=== PATIENT | female | born 2000 | race Caucasian/White ===

== ENCOUNTER 2021-04-18 18:29 | Emergency (ER) | payer OTHER, SELFPAY ==
[2021-04-18 18:38] VITALS: BP 135/75; PULSE 79; RESP 18; TEMP 37.1; O2SAT 100
--- NOTE | 2021-04-18 18:57 | ED.GENADULT ---
HPI - General Adult General Chief complaint: Wound/Laceration Stated complaint: cut left hand Time Seen by Provider: 04/18/21 18:57 Source: patient Mode of arrival: ambulatory Limitations: no limitations History of Present Illness HPI narrative: 20-year-old female patient presents to the [facility] with complaints of a laceration to the left TM. Patient states that she works acute [employer] and was using a knife to slice and accidentally cut her hand. Patient last tetanus she thinks was when she entered high school. Patient denies any numbness or tingling to the fingers. Related Data Home Medications Medication Instructions Recorded Confirmed No Home Medications 04/18/21 04/18/21 Allergies Allergy/AdvReac Type Severity Reaction Status Date / Time No Known Allergies Allergy Verified 04/18/21 18:59 Review of Systems Review of Systems: CONSTITUTIONAL: Denies fever, chills, or sweats. EYES: Denies visual changes, redness, or discharge. ENT: Denies rhinorrhea, congestion, sore throat, or otalgia. CARDIOVASCULAR: Denies chest pain, palpitations, or edema. RESPIRATORY: Denies cough or dyspnea. GASTROINTESTINAL: Denies abdominal pain, nausea, vomiting, or diarrhea. GENITOURINARY: Denies dysuria or hematuria. SKIN: Denies rash or itching. Laceration left palm MUSCULOSKELETAL: Denies back pain, joint pain, or myalgia. NEUROLOGIC: Denies headache, numbness, or weakness. PSYCHIATRIC: Denies anxiety or depression. [facility] Past Medical History Medical History (Updated 04/18/21 @ 19:06 by STEPH Graham) No significant past medical history Comments At the time of my signature I agree with nursing past medical history, surgical, social, and family history. There is no relevant family history pertinent to the presenting complaint. Exam Narrative: GENERAL: Well-appearing, well-nourished, and in no acute distress. HEAD: Normocephalic, atraumatic. EYES: PERRLA and EOMI. ENT: Nares clear, no rhinorrhea or epistaxis. Mucous membranes moist. NECK: Supple. No lymphadenopathy CHEST: Clear to auscultation. No respiratory distress. HEART: Regular rate and rhythm. No murmur heard. Normal peripheral pulses. ABDOMEN: Soft, nontender, nondistended, normal active bowel sounds. EXTREMITIES: Normal range of motion. No edema. SKIN: Warm, dry, no rash. Patient has approximately 1/2 cm well approximated laceration noted to the palm side under the fifth metacarpal. Patient has excellent range of motion of the thumb and hand and wrist. No active bleeding at this time. The wound is gaping open wound with some fat noticeable. NEURO: No focal deficits. Alert and oriented x3. Course Vital Signs Vital signs: Vital Signs Temperature 37.1 C 04/18/21 18:38 Pulse Rate 79 04/18/21 18:38 Respiratory Rate 18 04/18/21 18:38 Blood Pressure 135/75 04/18/21 18:38 Pulse Oximetry 100 04/18/21 18:38 Temperature 37.1 C 04/18/21 18:38 Pulse Rate 79 04/18/21 18:38 Respiratory Rate 18 04/18/21 18:38 Blood Pressure 135/75 04/18/21 18:38 Pulse Oximetry 100 04/18/21 18:38 Vital signs reviewed Procedures Laceration Laceration 1: Date: 04/18/21 Time: 19:05 Site: hand Side (If applicable): left Size (cm): 1.5 Description: linear Depth: simple, single layer Local Anesthetic: lidocaine 1% Amount of anesthesia used (mL): 4 Pre-repair: wound explored and irrigated ====== Skin Level ====== Skin layer closed with: vicryl Size (cm): 4-0 Number of sutures: 3 ====== Subcutaneous Layer ====== ====== Muscle Layer ====== ====== Tendon Layer ====== Dressing: The Procedure was explained and verbal consent was obtained. The wound was anesthetized with 4 ml of 1% lidocaine with epi with good anesthesia with local infiltration. Sterile drape and prep were done. Copious irrigation was done with saline and [place] an
[2021-04-18] MEDS: TETANUS,DIPHTHERIA,AC PERTUSSIS ADULT (0.5 ML) BOOSTRIX IM (19:10)
== END 2021-04-18 19:52 | disposition home or self-care (01) ==
PROVIDERS: Emergency Provider Nurse Practitioner Family
DX: S61.412A Laceration without foreign body of left hand, initial encounter (principal); W26.0XXA Contact with knife, initial encounter; Z23 Encounter for immunization
CPT/HCPCS: 12001; 90471; 90715; 99212; G0463